=== PATIENT | female | born 1955 | race Caucasian/White ===

== ENCOUNTER 2017-12-01 14:53 | Observation (INO) ==
--- NOTE | 2017-12-01 15:13 | Emergency Department Note ---
Disposition Clinical Impression: Tardive dyskinesia Disposition: Admitted As Inpatient Condition: Fair Time of Disposition: 19:55 General Adult HPI - General Stated complaint: panic attack/ hallucinations Time Seen by Provider: 12/01/17 14:56 Nursing Notes Reviewed: Yes Vital Signs Reviewed: Yes - History of Present Illness HPI Narrative: Mrs. Petty, a 62yo female, presents for evaluation of abrupt onset of confusion, lip smacking, tongue twisting. Patient is post-op right shoulder outpatient surgery performed early this afternoon at [facility]. Per the , patient was not fully awake prior to discharge from PACU. Since leaving the hospital, patient has been given gabapentin 600m tablets x2 PO. There has not been time to fill her post-op prescription of percocet 5/325. Home medications: Synthroid 101 microgram by mouth daily, gabapentin 600 mg by mouth 3 times a day , metformin 3 mg by mouth daily, (not legible...appears to be a benzodiazepine) 40 mg by mouth daily. No SSRI. - Related Data Home Medications Medication Instructions Recorded Confirmed Citalopram Hydrobromide [Celexa] 40 mg PO DAILY 03/03/17 12/01/17 Levothyroxine [Synthroid] 100 mcg PO DAILY 03/03/17 12/01/17 metFORMIN [Glucophage] 500 mg PO DAILY 03/03/17 12/01/17 Gabapentin [Neurontin] 600 mg PO TID 12/01/17 12/01/17 Allergies Allergy/AdvReac Type Severity Reaction Status Date / Time Hydromorphone [From Dilaudid] AdvReac See Verified 12/01/17 18:19 Comments Limitations: ROS unobtainable due to patients medical condition Past Medical History - Past Medical History Medical history: Reports: cancer, diabetes, osteoporosis, other Surgical history: Reports: TONNY/BSO, other Psychiatric history: Reports: anxiety - Social History Smoking Status: Never smoker Alcohol use: Reports: unknown Drug use: Reports: none Physical Exam Vital Signs Reviewed General: Patient is awake, not alert, not oriented. Head: atraumatic, normocephalic Eye: normal appearance, he feels equally dilated to 7 mm, sluggishly reactive, EOMI, no scleral icterus, no conjunctival injection ENT: mucous membranes tacky, normal external ear exam Neck: normal inspection, trachea midline, full ROM Chest: normal inspection, symmetric chest rise Respiratory: Good respiratory effort. Bilateral breath sounds are clear without wheezing, crackles, or rhonchi. Cardiovascular: Regular rate and rhythm. No clicks, rubs, gallops, or murmors. Normal heart sounds. Abdomen: Bowel sounds present normoactive x-4 quadrants. Abdomen is soft, nondistended, and nontender. No guarding or rebound. No organomegaly noted. Musculoskeletal: Spontaneously moving all extremities; right upper extremity is in a sling and wedge. Skin: warm, dry, intact. Neuro: Patient is awake but not oriented. Her tongue is protruding and twisting movements. She has puckering and smacking of her lips. She is chewing movements though her mouth is empty. She has purposeless movements of her legs and left arm. She is sporadically a purposelessly turning her head. Psych: Patient's affect is appropriate for situation. Course Course Narrative: 15:00 Discussed the patient with the anesthesiologist overseeing the patient's surgical case, Dr. Campbell. His procedure is to provide versed fentanyl interscale block, inhalant induction with propofol. No antiemetic to his knowledge. He will speak to staff and call back. 15:20 Discussed the patient with the nurse systems manager. Patient received zofran in the OR. No phenergran. She remembers the patient who was ambulatory to the bathroom, awake, and alert prior to discharge. EKG dated 12/01/14 15:14 interpreted as sinus rhythm with rate of 64. Normal intervals. Normal axis. Nonspecific ST-T changes. Compared to previous Patient's symptoms improved after Benadryl 50mg IV. She did, however, have breakthrough symptoms. This improved with Benadryl 25mg IVP. I discussed the patient with Dr. Kerns, the admitting hospitalist, who agrees to accept the patient with neurology consult. My attending discussed the patient with Dr. Gu, neurology, who agrees to see the patient as consult. He recommends providing benadryl scheduled Q6hr through the night. After a total of 75mg benadryl in staggered dosing as well as her home dose gabapendin 600mg PO and fentanyl pain control, patient is awake alert, conversive, and comfortable. Neither the patient nor have any questions at this time. The causative agent(s) are as of yet unknown. Vital Signs Temperature 97.7 F 12/01/17 14:56 Pulse Rate 74 12/01/17 14:56 Respiratory Rate 22 12/01/17 14:56 Blood Pressure 128/104 12/01/17 14:56 O2 Sat by Pulse Oximetry 93 12/01/17 14:56 Temperature 97.7 F 12/01/17 14:56 Pulse Rate 63 12/01/17 18:28 Respiratory Rate 18 12/01/17 18:28 Blood Pressure 124/70 12/01/17 18:28 O2 Sat by Pulse Oximetry 92 12/01/17 18:28 Oxygen Delivery Oxygen Delivery Nasal Cannula Medical Decision Making - Lab Data Result diagrams: 12/01/17 15:02 12/01/17 15:02 Lab Results 12/01/17 12/01/17 Range/Units 15:02 15:02 WBC 12.2 H D (4.3-11.1) K/mcL RBC 4.47 (3.82-4.97) M/mcL Hgb 13.3 (11.5-15.4) g/dL Hct 41.1 (35.3-44.9) % MCV 91.9 (83.0-100.0) fL MCH 29.8 (28.0-33.3) pg MCHC 32.4 (31.6-35.5) g/dL RDW 13.0 (11.5-14.5) % Plt Count 243 (140-400) K/mcL MPV 10.3 (9.4-12.4) fL Immature Gran % 1.7 (0-4) % Seg Neutrophils % 91.6 % Lymphocytes % 3.8 % Monocytes % 2.5 % Eosinophils % 0.0 % Basophils % 0.4 % Neutrophils # 11.2 H (1.6-8.9) K/mcL Lymphocytes # 0.5 L (0.6-4.6) K/mcL Monocytes # 0.3 (0.0-1.3) K/mcL Eosinophils # 0.0 (0.0-0.6) K/mcL Basophils # 0.1 (0.0-0.2) K/mcL Sodium 138 (136-145) mEq/L Potassium 3.9 (3.5-5.1) mEq/L Chloride 103 (98-107) mEq/L Carbon Dioxide 25 (23-29) mEq/L BUN 13 (8-23) mg/dL Creatinine 0.78 (0.60-1.20) mg/dL Est GFR ( Amer) > 60 (> 60) Est GFR (Non-Af Amer) > 60 (> 60) BUN/Creatinine Ratio 17 (6-26) Glucose 208 H (70-105) mg/dL Calculated Osmolality 292 (280-300) Calcium 9.0 (8.6-10.3) mg/dL Attestation Statement - Attestation Attestation: I, Marc Hobbs DO, examined this patient [id number] and my medical decision-making was reviewed with Dr. Dave Fang, Resident Physician. I agree with the documented findings, disposition and treatment plan as described except to the extent set forth below. Please see my progress notes for details.
[2017-12-01 15:38] LABS: Basophils # 0.1 K/mcL (0.0-0.2); Basophils % 0.4 %; Hematocrit 41.1 % (35.3-44.9); Hemoglobin 13.3 g/dL (11.5-15.4); Immature Granulocytes % 1.7 % (0-4); Lymphocytes # 0.5 K/mcL (0.6-4.6); Lymphocytes % 3.8 %; Mean Corpuscular HGB Conc 32.4 g/dL (31.6-35.5); Mean Corpuscular Hemoglobin 29.8 pg (28.0-33.3); Mean Corpuscular Volume 91.9 fL (83.0-100.0); Mean Platelet Volume 10.3 fL (9.4-12.4); Monocytes # 0.3 K/mcL (0.0-1.3); Monocytes % 2.5 %; Neutrophils # 11.2 K/mcL (1.6-8.9); Platelet Count 243 K/mcL (140-400); Red Blood Count 4.47 M/mcL (3.82-4.97); Segmented Neutrophils % 91.6 %
--- NOTE | 2017-12-01 15:44 | Emergency Department Note ---
Disposition Clinical Impression: Tardive dyskinesia Disposition: Admitted As Inpatient Condition: Fair Referrals: Cassi Lowe MD [Primary Care Provider] - Time of Disposition: 18:19 General Adult HPI - General Chief complaint: ED Neuro Symptoms/Deficit Stated complaint: panic attack/ hallucinations Time Seen by Provider: 12/01/17 14:56 Source: EMS Limitations: altered mental status - History of Present Illness Pain Scale: 0 - Related Data Home Medications Medication Instructions Recorded Confirmed Citalopram Hydrobromide [Celexa] 40 mg PO DAILY 03/03/17 03/03/17 Levothyroxine [Synthroid] 100 mcg PO DAILY 03/03/17 03/03/17 metFORMIN [Glucophage] 500 mg PO DAILY 03/03/17 03/03/17 Gabapentin [Neurontin] 600 mg PO TID 12/01/17 12/01/17 Allergies Allergy/AdvReac Type Severity Reaction Status Date / Time Hydromorphone [From Dilaudid] AdvReac See Verified 12/01/17 15:27 Comments Past Medical History - Past Medical History Medical history: Reports: cancer, diabetes, osteoporosis, other Surgical history: Reports: TONNY/BSO, other Psychiatric history: Reports: anxiety - Social History Smoking Status: Never smoker Alcohol use: Reports: unknown Drug use: Reports: none Physical Exam - General Limitations: altered mental status General appearance: in distress Course Vital Signs Temperature 97.7 F 12/01/17 14:56 Pulse Rate 74 12/01/17 14:56 Respiratory Rate 22 12/01/17 14:56 Blood Pressure 128/104 12/01/17 14:56 O2 Sat by Pulse Oximetry 93 12/01/17 14:56 Temperature 97.7 F 12/01/17 14:56 Pulse Rate 65 12/01/17 17:36 Respiratory Rate 16 12/01/17 17:36 Blood Pressure 138/68 12/01/17 17:36 O2 Sat by Pulse Oximetry 92 12/01/17 17:36 Oxygen Delivery Oxygen Delivery Room Air Medical Decision Making - Lab Data Result diagrams: 12/01/17 15:02 12/01/17 15:02 Lab Results 12/01/17 12/01/17 Range/Units 15:02 15:02 WBC 12.2 H D (4.3-11.1) K/mcL RBC 4.47 (3.82-4.97) M/mcL Hgb 13.3 (11.5-15.4) g/dL Hct 41.1 (35.3-44.9) % MCV 91.9 (83.0-100.0) fL MCH 29.8 (28.0-33.3) pg MCHC 32.4 (31.6-35.5) g/dL RDW 13.0 (11.5-14.5) % Plt Count 243 (140-400) K/mcL MPV 10.3 (9.4-12.4) fL Immature Gran % 1.7 (0-4) % Seg Neutrophils % 91.6 % Lymphocytes % 3.8 % Monocytes % 2.5 % Eosinophils % 0.0 % Basophils % 0.4 % Neutrophils # 11.2 H (1.6-8.9) K/mcL Lymphocytes # 0.5 L (0.6-4.6) K/mcL Monocytes # 0.3 (0.0-1.3) K/mcL Eosinophils # 0.0 (0.0-0.6) K/mcL Basophils # 0.1 (0.0-0.2) K/mcL Sodium 138 (136-145) mEq/L Potassium 3.9 (3.5-5.1) mEq/L Chloride 103 (98-107) mEq/L Carbon Dioxide 25 (23-29) mEq/L BUN 13 (8-23) mg/dL Creatinine 0.78 (0.60-1.20) mg/dL Est GFR ( Amer) > 60 (> 60) Est GFR (Non-Af Amer) > 60 (> 60) BUN/Creatinine Ratio 17 (6-26) Glucose 208 H (70-105) mg/dL Calculated Osmolality 292 (280-300) Calcium 9.0 (8.6-10.3) mg/dL Attestation Statement - Attestation Attestation: I, Marc Hobbs DO, examined this patient [id number] and my medical decision-making was reviewed with Dr. Dave Fang, Resident Physician. I agree with the documented findings, disposition and treatment plan as described except to the extent set forth below. Please see my progress notes for details. Patient presents emergency room after having a shoulder scope completed today. Patient did not have any competitions and the procedure was discharged home without any issue. EMS was contacted secondary the patient acting confused and altered. Patient presented by EMS and active and fit of what the family is concerned about. Patient was driving and fasciculating her tongue. Clinical presentation was consistent with tardives dyskinesia . Medication list from home was reviewed. Patient did take 1 extra gabapentin today. Patient's vital signs are stable on transport Accu-Chek was normal. The physician of note at the outside facility was contacted to review the medications that were provided. There appears to be no medications that should have caused that at this time. Patient will be given Benadryl. See her screening labs CT of the head will be ordered. Chest x-ray will be added as well. Disposition pending the full workup and treatment course. See detailed documentation of the physical exam, medical intervention, medical decision- making and disposition in the resident physician's note. No critical care provider this patient's treatment course at this time. 1625 Patient is now sitting upright in the bed speaking in full sentences and feels much better. She does have restless presentation to her legs. Patient is asking for a meal. Patient will be clinically monitored in emergency room. CT imaging of the head will be completed if the patient tolerates. Disposition will be determined once the treatment course is established 1800 CT imaging of the head is unremarkable this time. Patient still having intermittent symptoms. She will be admitted for symptomatic evaluation and control. Disposition will be admission at this time to the hospital.
[2017-12-01 15:57] LABS: BUN/Creatinine Ratio 17 (6-26); Blood Urea Nitrogen 13 mg/dL (8-23); Carbon Dioxide 25 mEq/L (23-29); Chloride 103 mEq/L (98-107); Glucose 208 mg/dL (70-105); Osmolality,Calculated 292 (280-300); Potassium 3.9 mEq/L (3.5-5.1); Sodium 138 mEq/L (136-145); eGFR For African Americans > 60 (> 60); eGFR For Non-African Americans > 60 (> 60)
[2017-12-01] MEDS ORDERED: *HR* FentaNYL (PF) 100 MCG/2 ML VIAL IVP ONE (16:25)
[2017-12-01] MEDS ORDERED: Gabapentin 300 MG CAPSULE PO STA (17:10)
[2017-12-01] MEDS ORDERED: Ondansetron 4 MG/2 ML VIAL IVP PRN (20:21)
[2017-12-01] MEDS ORDERED: Naloxone 0.4 MG/ML INJ IVP PRN (20:21)
[2017-12-01] MEDS ORDERED: Acetaminophen 325 MG TABLET PO PRN (20:21)
--- NOTE | 2017-12-01 20:40 | Internal Med History&Physical ---
Date of Encounter: 12/01/17 Time of Encounter: 07:30 Internal Medicine - H&P: HPI Chief complaint: Restless Admitted From: Home Plans for Post Hospital Care: Home History of present illness: Ms. Petty is a 62 year old female present to ER for restless since this afternoon. Past medical history is significant for hypothyroidism. Patient had ambulatory surgery of shoulder arthroscope for rotator cuff tear. Patient was discharged to home after surgery and PACU observation, uneventfully. Patient developed abrupt onset of confusion, lip smacking, tongue twisting, leg restless. Patient denies fever. Patient has mild nausea but no vomiting. In the emergency room, anesthesiologist was contacted by ER, patient was given midazolam and fentanyl and propofol during anethesia, patient underwent brachial plexus blockade of right-sided. Patient has received zofran during PACU stay. Seems no regalan. Patient was considered tardive dyskinesia and was treated with Benadryl IV. Neurology was contacted and recommend further Benadryl treatment if symptoms appear again. After treatment, patient' s symptoms has resolved. Patient will be admitted for observation. Past Med Surg Social Fam HX - Past Medical History Medical history: cancer, diabetes, osteoporosis, other Psychiatric history: anxiety - Past Surgical History Surgical History: TONNY/BSO, other - Social History Smoking Status: Never smoker Alcohol use: unknown Drug use: none Internal Medicine - H&P: Meds Citalopram Hydrobromide [Celexa] 40 mg PO DAILY 03/03/17 [History] Levothyroxine [Synthroid] 100 mcg PO DAILY 03/03/17 [History] metFORMIN [Glucophage] 500 mg PO DAILY 03/03/17 [History] Gabapentin [Neurontin] 600 mg PO TID 12/01/17 [History] 3 Allergy/AdvReac Type Severity Reaction Status Date / Time Hydromorphone [From Dilaudid] AdvReac See Verified 12/01/17 18:19 Comments All Systems PM: A 10-system review of systems was performed and is negative for pertinent findings except as documented above in the HPI. - Constitutional Vitals: Temp Pulse Resp BP Pulse Ox 97.7 F 63 18 124/70 92 12/01/17 14:56 12/01/17 18:28 12/01/17 18:28 12/01/17 18:28 12/01/17 18:28 General appearance: Present: A&O X 3, no acute distress, answers questions appropriately - Head Head exam: Present: atraumatic, normocephalic - Eye Eye exam: Present: PERRL, conjuntiva pink, sclera anicteric Pupils: Present: PERRL - Neck Neck exam general surgery: Present: supple, trachea midline. Absent: lymphadenopathy - Respiratory Respiratory exam: Present: CTAB. Absent: accessory muscle use, rales, rhonchi, wheezes - Cardiovascular Cardiovascular exam: Present: RRR, +S1, +S2. Absent: diastolic murmur, gallop, rubs, systolic murmur - GI/Abdominal GI/Abdominal exam: Present: normal bowel sounds, soft, no peritoneal signs. Absent: distended, tenderness - Extremities Exam Extremities exam: Present: warm, radial pulses palpable and symmetrical. Absent : calf tenderness, cyanotic, pedal edema Additional comments: Right shoulder S/P surgery, in sling. - Neurological Exam Neurological exam: Present: CN II-XII intact, oriented X3, no focal deficits. Absent: pronater drift, facial droop, speech deficit - Skin Skin exam: Present: dry, intact Internal Med - H&P Results - Labs CBC & Chem 7: 12/01/17 15:02 12/01/17 15:02 - EKG Data -: EKG Interpreted by Myself EKG shows normal: sinus rhythm Rate: normal - Assessment and plan (1) DVT prophylaxis Current Visit: Yes Status: Acute Assessment and plan: EPCD (2) Hypothyroidism Current Visit: Yes Status: Acute Assessment and plan: Continue home medications Qualifiers: Hypothyroidism type: acquired Qualified Code(s): E03.9 - Hypothyroidism, unspecified (3) Tardive dyskinesia Current Visit: Yes Status: Acute Assessment and plan: Etiology is undetermined. Symptoms resolved after treatment. Continue closely monitor patient. Benadryl IV as needed. Neurology consult in a.m. (4) S/P arthroscopy of right shoulder Current Visit: Yes Status: Acute Assessment and plan: Continue closely monitor patient and pain management as needed. - Time Spent With Patient Total time spent is greater than 50% in coordination of care (as documented) at patient's floor/unit and/or counseling patient: 40 minutes Greater than 35 minutes
[2017-12-02] MEDS: Ketorolac 30 MG/ML VIAL IVP PRN ×3 (00:12→20:25)
[2017-12-02 04:56] LABS: Basophils % 0.4 %; Eosinophils % 0.2 %; Hematocrit 34.4 % (35.3-44.9); Immature Granulocytes % 0.9 % (0-4); Lymphocytes # 1.4 K/mcL (0.6-4.6); Lymphocytes % 12.4 %; Mean Corpuscular HGB Conc 32.8 g/dL (31.6-35.5); Mean Corpuscular Hemoglobin 29.9 pg (28.0-33.3); Mean Platelet Volume 11.2 fL (9.4-12.4); Monocytes # 1.1 K/mcL (0.0-1.3); Monocytes % 9.6 %; Neutrophils # 8.7 K/mcL (1.6-8.9); Platelet Count 187 K/mcL (140-400); Red Blood Count 3.78 M/mcL (3.82-4.97); Red Cell Distribution Width 13.3 % (11.5-14.5); Segmented Neutrophils % 76.5 %
[2017-12-02 05:08] LABS: Hemoglobin 11.3 g/dL (11.5-15.4)
[2017-12-02 05:16] LABS: BUN/Creatinine Ratio 18 (6-26); Blood Urea Nitrogen 12 mg/dL (8-23); Calcium 8.3 mg/dL (8.6-10.3); Carbon Dioxide 25 mEq/L (23-29); Chloride 108 mEq/L (98-107); Glucose 158 mg/dL (70-105); Magnesium 1.9 mg/dL (1.6-2.6); Osmolality,Calculated 291 (280-300); Potassium 4.1 mEq/L (3.5-5.1); Sodium 139 mEq/L (136-145); eGFR For African Americans > 60 (> 60); eGFR For Non-African Americans > 60 (> 60)
--- NOTE | 2017-12-02 09:18 | Discharge Summary ---
<Joellen King - Last Filed: 12/03/17 17:03> Date of Encounter: 12/03/17 Time of Encounter: 09:25 - Discharge Diagnosis (1) Drug-induced acute dystonia Priority: Primary Status: Resolved (2) Hypothyroidism Priority: Secondary Status: Chronic Qualifiers: Hypothyroidism type: acquired Qualified Code(s): E03.9 - Hypothyroidism, unspecified (3) S/P arthroscopy of right shoulder Priority: Secondary Status: Acute (4) Bradycardia with 51-60 beats per minute Priority: Secondary Status: Resolved (5) DVT prophylaxis Priority: Secondary Status: Acute Hospital course: Ms. Petty is a 62 year old female - Time Spent with Patient Total time spent providing and/or coordinating discharge services: - Discharge Medications Prescriptions: DiphenhydraMINE [Benadryl] 25 mg PO Q6HR PRN 7 Days #28 capsule PRN Reason: Extrapyramidal Effects Home Medications: Citalopram Hydrobromide [Celexa] 40 mg PO DAILY 03/03/17 [History] Levothyroxine [Synthroid] 100 mcg PO DAILY 03/03/17 [History] metFORMIN [Glucophage] 500 mg PO DAILY 03/03/17 [History] Gabapentin [Neurontin] 600 mg PO TID 12/01/17 [History] DiphenhydraMINE [Benadryl] 25 mg PO Q6HR PRN 7 Days #28 capsule 12/03/17 [Rx] Allergies/Adverse Reactions: 3 Allergy/AdvReac Type Severity Reaction Status Date / Time Hydromorphone [From Dilaudid] AdvReac See Verified 12/01/17 18:19 Comments Date of admission: 12/01/17 19:42 Primary care physician: Cassi Lowe MD Consults: 12/01/17 23:23 Consult to Neurology [CONS] Routine Consulting Provider: [facility] Reason for Consult: suspect TD, Dr Kimball called by ER Call Completed: Yes Discharging clinician: Joellen King Anticipated date of discharge: 12/03/17 - Constitutional Vitals: Temp Pulse Resp BP Pulse Ox 97.7 F 52 18 116/74 96 12/02/17 07:19 12/02/17 07:19 12/02/17 07:19 12/02/17 07:19 12/02/17 07:19 General appearance: Present: A&O X 3, no acute distress, answers questions appropriately - Head Head exam: Present: atraumatic, normocephalic - Eye Eye exam: Present: EOMI, PERRL, sclera anicteric - Neck Neck exam general surgery: Present: supple, trachea midline - Respiratory Respiratory exam: Present: CTAB. Absent: respiratory distress, wheezes - Cardiovascular Cardiovascular exam: Present: bradycardia, +S1, +S2. Absent: diastolic murmur, systolic murmur - GI/Abdominal GI/Abdominal exam: Present: normal bowel sounds, soft. Absent: distended, tenderness - Extremities Exam Extremities exam: Present: normal inspection, warm. Absent: mottling, pedal edema, tenderness - Neurological Exam Neurological exam: Present: alert, CN II-XII intact, oriented X3, reflexes normal. Absent: motor sensory deficit, no focal deficits, pronater drift, facial droop, speech deficit - Expanded Neurological Exam Upper motor neuron: Babinski sign: Normal Coma Scale Eye Opening: Spontaneous Coma Scale Motor Response: Obeys Commands Coma Scale Verbal Response: Oriented Coma Scale Total: 15 - Psychiatric Psychiatric exam: Present: normal affect, normal mood - Skin Skin exam: Present: normal color, warm - Patient Status Disposition: Home, Self-Care Condition: Fair - Discharge Instructions Instructions: Altered Mental Status (GEN) Follow Up With: Cassi Lowe MD [Primary Care Provider] - 12/12/17 3:00 pm Forms: ED Satisfaction Letter <Bob Macias - Last Filed: 12/03/17 17:47> Date of Encounter: 12/03/17 - Discharge Diagnosis (1) DVT prophylaxis Status: Acute (2) Hypothyroidism Status: Chronic Qualifiers: Hypothyroidism type: acquired Qualified Code(s): E03.9 - Hypothyroidism, unspecified (3) S/P arthroscopy of right shoulder Status: Acute (4) Drug-induced acute dystonia Status: Resolved (5) Bradycardia with 51-60 beats per minute Status: Resolved Hospital course: Ms. Petty is a 62 year old female - Time Spent with Patient Total time spent providing and/or coordinating discharge services: Date of admission: 12/01/17 19:42 Primary care physician: Cassi Lowe MD Consults: 12/01/17 23:23 Consult to Neurology [CONS] Routine Consulting Provider: [facility] Reason for Consult: suspect TD, Dr Kimball called by ER Call Completed: Yes - Constitutional Vitals: Temp Pulse Resp BP Pulse Ox 98.7 F 66 18 124/67 96 12/03/17 10:30 12/03/17 10:30 12/03/17 10:30 12/03/17 10:30 12/03/17 10:30 - Attending Attestation I examined this patient and my medical decision-making was reviewed with the Resident Physician Dr. Caceres.. I agree with the documented findings, disposition and treatment plan as described except to the extent set forth below. Pt does not have any more episodes since y/d. She is more alert, awake and O x 3. Denied any CP / SOB. a/p 1. ?? tardive dyskinesia Very less likely 2. Possible anxiety / stress Recommend to use Benadryl PRN
[2017-12-02] MEDS ORDERED: *HR* LORazepam 2 MG/ML VIAL IVP ONE (09:53)
[2017-12-02] MEDS ORDERED: *HR* LORazepam 2 MG/ML VIAL ONE (09:53)
--- NOTE | 2017-12-02 10:17 | Neurology - Consult Note ---
<Dashawn Rowland - Last Filed: 12/02/17 10:12> Date of Encounter: 12/02/17 Time of Encounter: 10:12 Assessment and Plan (1) Drug-induced acute dystonia Current Visit: Yes Status: Acute likley medication induced dystonia resolved with benadryl no reccurent episode patient does not have previous history of this she is not on anti-psychotics patient can be discharged from neurology perspective with prn benadryl if symptoms reoccur. If symptoms reoccur she is advised to return to ER and or to contact PCP and get referral to neurology. History of Present Illness Chief complaint: restlessness HPI: Ms. Petty is a 62 year old female presented via EMS with chief complaint of restlessness. Patient yesterday morning had right rotator cuff repair at [facility]. She and her report there were no complications during the procedure. After being discharged drove patient back home. During the drive patient started having restlessness which included movement of her bilateral lower extremity, tongue fasciculations, lip smacking. She also appeared confused and altered to the . During this time patient was still verbal and understood has been speech. Patient and denied headache, blurry vision, facial drooping, difficulty in swallowing, numbness, tingling, syncope. ER workup included CT of the head which was negative, Accu-Cheks showed POC of 208. Magnesium was within normal limits. Emergency room contacted anesthesiologist at [facility] and reported patient was given midazolam, fentanyl, propofol during anesthesia. Patient then received Zofran during PACU stay. Patient was given IV Benadryl in the emergency room which helped improve her symptoms. Overnight patient has not had recurrent symptoms. She is awake, alert and oriented 3. Patient does report feeling tired and pain in the right upper extremity. She is able to ambulate independently. Past Med Surg Social Fam HX - Past Medical History Medical history: cancer, diabetes, osteoporosis, other Psychiatric history: anxiety - Past Surgical History Surgical History: TONNY/BSO, other - Social History Smoking Status: Never smoker Alcohol use: unknown Drug use: none Medications and Allergies Citalopram Hydrobromide [Celexa] 40 mg PO DAILY 03/03/17 [History] Levothyroxine [Synthroid] 100 mcg PO DAILY 03/03/17 [History] metFORMIN [Glucophage] 500 mg PO DAILY 03/03/17 [History] Gabapentin [Neurontin] 600 mg PO TID 12/01/17 [History] 3 Allergy/AdvReac Type Severity Reaction Status Date / Time Hydromorphone [From Dilaudid] AdvReac See Verified 12/01/17 18:19 Comments All Systems: The remainder of the systems were reviewed and are negative Review of Systems: Constitutional: Denies fever, chills HEENT: Denies headache, vision changes, neck pain, sore throat, rhinorrhea Heart: Denies chest pain palpitations Lungs: Denies shortness of breath cough Abdomen: Denies abdominal pain nausea vomiting diarrhea Back: Denies back pain Kidney: Denies dysuria, hematuria Skin: warm and dry Extremities: Denies swelling, pain Neuro: As per history of present illness Physical Examination - Vital Signs Vital Signs: Initial Vital Signs Temp Pulse Resp BP Pulse Ox 97.7 F 74 22 128/104 93 12/01/17 14:56 12/01/17 14:56 12/01/17 14:56 12/01/17 14:56 12/01/17 14:56 - Exam Exam: General: without distress HEENT: Head atraumatic, normocephalic, EOMI, PERRL, neck nontender to palpation , absent lymphadenopathy, Moist Mucous Membranes, Heart: Regular rate and rhythm with no murmur Lungs: Clear to auscultation bilaterally Abdomen: Soft nontender, nondistended positive bowel sounds Skin: warm and dry Extremities: Absent pedal edema, right upper extremity in a sling Vascular: Pedal and radial pulses 2 out of 4 - Constitutional General appearance: comfortable - Neurologic Sensorimotor examination: intact Detailed motor examination: grossly full strength in all extremities Motor examination - right side: 5/5: hip flexors, tibialis Anterior, quadriceps , toe extension (EHL), plantarflexion Motor examination - left side: 5/5: deltoids, biceps, triceps, wrist flexion, wrist extension, hip flexors, warpman, quadriceps, tibialis Anterior, toe extension (EHL), plantarflexion Detailed sensory examination: intact Reflex and gait examination: intact Reflexes: Biceps: 2+ (Right upper extremity reflexes not tested due to pain in the sling), Triceps: 2+, Brachioradialis: 2+, Patella: 2+, Achilles: 2+ Mental Status Examination: awake, alert, oriented to person, oriented to place, oriented to time, follows commands appropriately, answers questions appropriately, no agnosia, no aphasia, no aproxia Cranial nerve examination: PERRL, EOMI, visual lanza intact, sensory to face intact, mastication intact, no facial asymmetry is present, no dysarthria, hearing is intact symmetrically, soft palate elevates bilaterally upon phonation , flexes SCM and trapezius muscles symmetrically with full power, tongue protrudes midline, no atrophy or facial fasiculations present Cerebellar examination: no dysmetria Results - Laboratory Findings CBC and BMP: 12/02/17 04:43 12/02/17 04:43 Abnormal lab findings: Abnormal lab results WBC 11.3 K/mcL (4.3-11.1) H 12/02/17 04:43 RBC 3.78 M/mcL (3.82-4.97) L 12/02/17 04:43 Hgb 11.3 g/dL (11.5-15.4) L D 12/02/17 04:43 Hct 34.4 % (35.3-44.9) L 12/02/17 04:43 Chloride 108 mEq/L (98-107) H 12/02/17 04:43 Glucose 158 mg/dL (70-105) H 12/02/17 04:43 Calcium 8.3 mg/dL (8.6-10.3) L 12/02/17 04:43 Consult Discharge Plan - Plan Referrals: Cassi Lowe MD [Primary Care Provider] - <Flor Gu I - Last Filed: 12/02/17 15:23> Date of Encounter: 12/02/17 Assessment and Plan (1) Drug-induced acute dystonia Current Visit: Yes Status: Acute Pt was seen and examined, my medical decision was reviewed with the Resident Physician, I agree with the documented findings, disposition and treatment plas as described except to the extent set forth below This patient who baseline seem to have underlying anxiety having these episodes of flow jerking movement which seems to resolve now after receiving Benadryl did not have any episodes since this morning no focal findings on neurological examination she is not having any movement at this time I really doubt that her symptoms are of tardive dyskinesia as there is no history of neuroleptic use and her symptoms is started after the use of anesthetic after her shoulder surgery likely extrapyramidal symptoms which seems to be responding to the Benadryl suggested to continue when necessary basis She also has underlying anxiety probably playing a significant role in her symptoms patient remained stable perhaps could be discharged later on Flor Gu MD History of Present Illness HPI: Ms. Petty is a 62 year old female All Systems: The remainder of the systems were reviewed and are negative Physical Examination - Vital Signs Vital Signs: Initial Vital Signs Temp Pulse Resp BP Pulse Ox 97.7 F 74 22 128/104 93 12/01/17 14:56 12/01/17 14:56 12/01/17 14:56 12/01/17 14:56 12/01/17 14:56 Results - Laboratory Findings CBC and BMP: 12/02/17 04:43 12/02/17 04:43 Abnormal lab findings: Abnormal lab results WBC 11.3 K/mcL (4.3-11.1) H 12/02/17 04:43 RBC 3.78 M/mcL (3.82-4.97) L 12/02/17 04:43 Hgb 11.3 g/dL (11.5-15.4) L D 12/02/17 04:43 Hct 34.4 % (35.3-44.9) L 12/02/17 04:43 Chloride 108 mEq/L (98-107) H 12/02/17 04:43 Glucose 158 mg/dL (70-105) H 12/02/17 04:43 Calcium 8.3 mg/dL (8.6-10.3) L 12/02/17 04:43
[2017-12-02] MEDS: *HR* Metformin 500 MG TABLET PO SCH (10:45)
--- NOTE | 2017-12-02 11:37 | Electrocardiograph Report ---
[facility] Test Date: 2017-12-01 Pat Name: Preeti Petty Department: 102 Room: 2S3 Gender: F Fire Behavior [employer]st: : 1955 Requested By: Dave Fang Order Number: [id number] Reading MD: Tre Pascal Measurements Intervals [place] Rate: 64 P: 68 AR: 177 QRS: 8 QRSD: 106 T: 29 QT: 451 QTc: 460 Interpretive Statements SINUS RHYTHM wnl Electronically Signed On 12-02-2017 11:35:56 EDT by Tre Pascal
--- NOTE | 2017-12-02 17:00 | Internal Med Progress Note ---
<Joellen King - Last Filed: 12/02/17 16:59> Date of Encounter: 12/02/17 Time of Encounter: 09:00 - Assessment and plan (1) Hypothyroidism Current Visit: Yes Status: Chronic Qualifiers: Hypothyroidism type: acquired Qualified Code(s): E03.9 - Hypothyroidism, unspecified (2) S/P arthroscopy of right shoulder Current Visit: Yes Status: Acute (3) DVT prophylaxis Current Visit: Yes Status: Acute (4) Drug-induced acute dystonia Current Visit: Yes Status: Acute (5) Bradycardia with 51-60 beats per minute Current Visit: Yes Status: Acute - Time Spent With Patient Total time spent is greater than 50% in coordination of care (as documented) at patient's floor/unit and/or counseling patient: - Constitutional Vitals: Temp Pulse Resp BP Pulse Ox 97.4 F L 61 22 123/85 95 12/02/17 10:37 12/02/17 15:15 12/02/17 15:15 12/02/17 15:15 12/02/17 15:15 General appearance: Present: A&O X 3, no acute distress, answers questions appropriately Internal Medicine: Result - Labs CBC & Chem 7: 12/02/17 04:43 12/02/17 04:43 Labs: Short CBC 12/02/17 Range/Units 04:43 WBC 11.3 H (4.3-11.1) K/mcL Hgb 11.3 L D (11.5-15.4) g/dL Hct 34.4 L (35.3-44.9) % Plt Count 187 (140-400) K/mcL Neutrophils # 8.7 (1.6-8.9) K/mcL BMP 12/02/17 04:43 Sodium 139 Potassium 4.1 Chloride 108 H Carbon Dioxide 25 BUN 12 Creatinine 0.66 Glucose 158 H Calcium 8.3 L Consult Discharge Plan - Plan Referrals: Cassi Lowe MD [Primary Care Provider] - <Bob Macias - Last Filed: 12/02/17 19:22> Date of Encounter: 12/02/17 - Assessment and plan (1) DVT prophylaxis Current Visit: Yes Status: Acute (2) Hypothyroidism Current Visit: Yes Status: Chronic Qualifiers: Hypothyroidism type: acquired Qualified Code(s): E03.9 - Hypothyroidism, unspecified (3) S/P arthroscopy of right shoulder Current Visit: Yes Status: Acute (4) Drug-induced acute dystonia Current Visit: Yes Status: Acute (5) Bradycardia with 51-60 beats per minute Current Visit: Yes Status: Acute - Time Spent With Patient Total time spent is greater than 50% in coordination of care (as documented) at patient's floor/unit and/or counseling patient: - Constitutional Vitals: Temp Pulse Resp BP Pulse Ox 97.4 F L 61 22 123/85 95 12/02/17 10:37 12/02/17 15:15 12/02/17 15:15 12/02/17 15:15 12/02/17 15:15 Internal Medicine: Result - Labs CBC & Chem 7: 12/02/17 04:43 12/02/17 04:43 Labs: Short CBC 12/02/17 Range/Units 04:43 WBC 11.3 H (4.3-11.1) K/mcL Hgb 11.3 L D (11.5-15.4) g/dL Hct 34.4 L (35.3-44.9) % Plt Count 187 (140-400) K/mcL Neutrophils # 8.7 (1.6-8.9) K/mcL BMP 12/02/17 04:43 Sodium 139 Potassium 4.1 Chloride 108 H Carbon Dioxide 25 BUN 12 Creatinine 0.66 Glucose 158 H Calcium 8.3 L - Attending Attestation I examined this patient and my medical decision-making was reviewed with the Resident Physician Dr. Caceres.. I agree with the documented findings, disposition and treatment plan as described except to the extent set forth below. Pt still has some a couple of episodes of lip smacking and moving lower extremities restlessly. However pt is not confused and fully oriented. a/p 1. ?? tardive dyskinesia Very less likely 2. Possible anxiety / stress cont close monitoring for another night cont Benadryl PRN Neuro on board
[2017-12-02] MEDS: *HR* OxyCODONE Immed Rel 5 MG TABLET PO PRN (18:44)
[2017-12-03 04:36] LABS: Basophils # 0.1 K/mcL (0.0-0.2); Basophils % 0.6 %; Eosinophils # 0.2 K/mcL (0.0-0.6); Eosinophils % 1.9 %; Hematocrit 36.7 % (35.3-44.9); Hemoglobin 11.8 g/dL (11.5-15.4); Immature Granulocytes % 0.9 % (0-4); Lymphocytes # 1.3 K/mcL (0.6-4.6); Lymphocytes % 13.2 %; Mean Corpuscular HGB Conc 32.2 g/dL (31.6-35.5); Mean Corpuscular Hemoglobin 29.9 pg (28.0-33.3); Mean Corpuscular Volume 92.9 fL (83.0-100.0); Mean Platelet Volume 10.7 fL (9.4-12.4); Monocytes # 1.1 K/mcL (0.0-1.3); Monocytes % 11.3 %; Neutrophils # 7.2 K/mcL (1.6-8.9); Platelet Count 194 K/mcL (140-400); Red Blood Count 3.95 M/mcL (3.82-4.97); Red Cell Distribution Width 13.4 % (11.5-14.5); Segmented Neutrophils % 72.1 %
[2017-12-03 05:08] LABS: BUN/Creatinine Ratio 18 (6-26); Blood Urea Nitrogen 12 mg/dL (8-23); Calcium 8.4 mg/dL (8.6-10.3); Carbon Dioxide 29 mEq/L (23-29); Chloride 108 mEq/L (98-107); Glucose 121 mg/dL (70-105); Osmolality,Calculated 291 (280-300); Potassium 4.2 mEq/L (3.5-5.1); Sodium 140 mEq/L (136-145); eGFR For African Americans > 60 (> 60); eGFR For Non-African Americans > 60 (> 60)
[2017-12-03] MEDS: Ketorolac 30 MG/ML VIAL IVP PRN (07:08)
[2017-12-03] MEDS: *HR* Metformin 500 MG TABLET PO SCH (08:44)
[2017-12-03] MEDS: *HR* OxyCODONE Immed Rel 5 MG TABLET PO PRN (08:44)
[2017-12-03] MEDS ORDERED: Gabapentin 300 MG CAPSULE PO SCH (09:00)
[2017-12-03 10:32] VITALS: BP 124/67
--- NOTE | 2017-12-03 11:09 | Neurology Progress Note ---
Date of Encounter: 12/03/17 Time of Encounter: 07:25 Assessment and Plan (1) Abnormal movement Status: Acute Vision noted to have off-and-on these movements seem to be responding to the Benadryl initially it was thought that these are tardive dyskinesia but I really doubt that these are tardive dyskinesias Perhaps this could be related to medication side effect but that has been resolved after the Benadryl but now the moment she is having seems to be more behavioral than true extrapyramidal symptoms patient does seem to be slightly anxious and nervous perhaps could be related to it So far workup has been negative I suggest that continue on Benadryl when necessary should not give on a scheduled doses she may benefit from some medication for underlying anxiety. ok to DISCHARGE from neurology standpoint Objective - Constitutional Vitals: Temp Pulse Resp BP Pulse Ox 98.7 F 66 18 124/67 96 12/03/17 10:30 12/03/17 10:30 12/03/17 10:30 12/03/17 10:30 12/03/17 10:30 - Neurological Exam Sensorimotor examination: Present: intact Motor Examination: Present: grossly full strength in all extremities Motor examination - left side: 5/5: deltoids, biceps, triceps, wrist flexion, wrist extension, hip flexors, set staff fitter, quadriceps, tibialis Anterior, toe extension (EHL), plantarflexion Sensation intact: Present: intact Reflex and gait examination: intact Mental Status Examination: Present: awake, alert, oriented to person, oriented to place, oriented to time, follows commands appropriately, answers questions appropriately, no agnosia, no aphasia, no aproxia Cranial nerve examination: Present: PERRL, EOMI, visual lanza intact, sensory to face intact, mastication intact, no facial asymmetry is present, no dysarthria, hearing is intact symmetrically, soft palate elevates bilaterally upon phonation, flexes SCM and trapezius muscles symmetrically with full power, tongue protrudes midline, no atrophy or facial fasiculations present Cerebellar examination: Present: no dysmetria Results - Laboratory Findings CBC and BMP: 12/03/17 04:25 12/03/17 04:25 Abnormal lab findings: Abnormal lab results Chloride 108 mEq/L (98-107) H 12/03/17 04:25 Glucose 121 mg/dL (70-105) H 12/03/17 04:25 Calcium 8.4 mg/dL (8.6-10.3) L 12/03/17 04:25 Consult Discharge Plan - Plan Instructions: Altered Mental Status (GEN) Referrals: Cassi Lowe MD [Primary Care Provider] - 12/12/17 3:00 pm Prescriptions: DiphenhydraMINE [Benadryl] 25 mg PO Q6HR PRN 7 Days #28 capsule PRN Reason: Extrapyramidal Effects
== END 2017-12-03 11:02 | disposition home or self-care (01) ==
LOC: EMEROO 14:53 → 3ANU 14:53 → 2SOUTHHOLD 12-02 07:11
PROVIDERS: ADMIT Internal Medicine; ATTEND Internal Medicine